=== PATIENT | male | born 1995 | race Caucasian/White ===

== ENCOUNTER 2024-09-27 18:34 | Emergency (ER) | payer OTHER, SELFPAY ==
[2024-09-27 18:36] VITALS: BP 151/84; PULSE 100; RESP 16; TEMP 37.4; O2SAT 98; BMI 34.1
--- NOTE | 2024-09-27 18:47 | EX.ED.DYSGE1 ---
HPI <JOAQUÍN Castellano - Last Filed: 09/27/24 19:54> History of Present Illness Chief Complaint: General Illness Narrative Narrative: 29-year-old male with no significant past medical history states 3 days ago he developed 24 hours of vomiting and diarrhea. After that resolved he developed a runny nose, congestion, sore throat, cough and lost his voice. He states he is achy all over. He has been taking ibuprofen. His girlfriend had similar GI symptoms. PFSH <JOAQUÍN Castellano - Last Filed: 09/27/24 19:54> [facility], [facility] Medical History (Updated 09/27/24 @ 23:[address] Gregor Carballo, DO) Cough Allergy/AdvReac Type Severity Reaction Status Date / Time Penicillins (PCN) Allergy CONVULSIONS Verified 09/27/24 18:36 Social History Smoking Status: Current every day smoker tobacco type: cigarettes ROS <JOAQUÍN Castellano Last Filed: 09/27/24 19:54> ROS ED ROS Narrative Constitutional: Positive for fever, chills, malaise. CVS: Negative for chest pain. Respiratory: Positive for cough. Negative for shortness of breath. GI: Negative for abdominal pain. Positive for vomiting, diarrhea. Neuro: Negative for headache. EXAM <JOAQUÍN Castellano Last Filed: 09/27/24 19:54> Physical Exam Narrative Exam Narrative: CONST: Patient appears ill but nontoxic. Resting in bed comfortably. EYES: Normal inspection. ENT: Normal posterior oropharynx with mucus drainage, midline uvula, no tonsillar exudate or swelling. Clear rhinorrhea in both naris, normal TMs bilaterally. NECK: Normal inspection. No meningismus. RESP: No respiratory distress, CTAB. CVS: Regular rate and rhythm, no murmur, no gallop. SKIN: Color normal, no rash, warm, dry, intact. EXTREMITIES: Normal appearance, no pedal edema. NEURO: Alert and answering questions appropriately. PSYCH: Normal affect. Const Vital Signs: 09/27/24 18:36 09/27/24 18:48 09/27/24 20:12 Temperature 99.4 F H 98.6 F Temperature Source Oral Pulse Rate 100 89 Respiratory Rate 16 18 Respiratory Effort Normal Non-Labored Blood Pressure 151/84 H 151/84 H Blood Pressure Mean 106 106 Pulse Ox 98 97 Oxygen Delivery Method Room Air <Dr. Gregor Carballo, - Last Filed: 09/27/24 23:53> Physical Exam Const Vital Signs: 09/27/24 18:36 09/27/24 18:48 09/27/24 20:12 Temperature 99.4 F H 98.6 F Temperature Source Oral Pulse Rate 100 89 Respiratory Rate 16 18 Respiratory Effort Normal Non-Labored Blood Pressure 151/84 H 151/84 H Blood Pressure Mean 106 106 Pulse Ox 98 97 Oxygen Delivery Method Room Air MDM <JOAQUÍN Castellano - Last Filed: 09/27/24 19:54> [facility] Narrative Medical decision making narrative: History gathered from: Patient, significant other Differential: Viral syndrome, pneumonia, no signs of otitis media, strep pharyngitis, or meningitis are present 29-year-old male presents with generalized illness. It started with GI symptoms and is now evolved into URI symptoms. He appears ill but nontoxic and is hemodynamically stable. Exam is benign with rhinorrhea and mucus drainage but no signs of acute bacterial etiologies. Viral swab is positive for influenza A and CXR shows right-sided infiltrate consistent with a viral pneumonia. He was treated with Toradol, Tylenol, and Decadron for sore throat. I discussed symptomatic management at home and she was discharged in stable condition. Radiography Diagnostic Testing: Clinical Impression(s) from Imaging Studies Chest X-Ray 09/27/24 18:53 IMPRESSION: Mild right lower lobe infiltrate. Electronically Signed: Daniel Marion MD at 19:16 EST Reading Location ID and State: [address] [place] [address] Tel , Service support , ED attending interpretation of 2 view chest x-ray shows normal heart size, right lower lobe infiltrate. <Dr. Gregor Carballo DO - Last Filed: 09/27/24 23:53> [facility] Narrative Medical decision making narrative: History gathered from: Patient, significant other Differential: Viral syndrome, pneumonia, no signs of otitis media, strep pharyngitis, or meningitis are present 29-year-old male presents with generalized illness. It started with GI symptoms and is now evolved into URI symptoms. He appears ill but nontoxic and is hemodynamically stable. Exam is benign with rhinorrhea and mucus drainage but no signs of acute bacterial etiologies. Viral swab is positive for influenza A and CXR shows right-sided infiltrate consistent with a viral pneumonia. He was treated with Toradol, Tylenol, and Decadron for sore throat. I discussed symptomatic management at home and she was discharged in stable condition. Attending note: I have personally performed a face to face assessment of the patient and have reviewed the TUNG note. I personally made/approved the management plan and take responsibility for the patient management. I performed a substantive portion of the visit including all aspects of the following. My de la fuente findings include: Department. History of vomiting diarrhea sore throat mild cough. No myalgias. No sick contacts. Exam fatigued male nontoxic no acute distress. Patient is ambulatory. Lungs clear heart regular. Patient treated with Tylenol and Toradol and dexamethasone was placed due to laryngitis symptoms with sore throat. COVID flu RSV positive for influenza. Two-view chest x-ray interpreted myself by radiology right lower lobe infiltrate early. There is a viral cause with influenza. No indication for antibiotics. He is over 48 hours from his symptoms therefore no indication for Tamiflu. Radiography Diagnostic Testing: Clinical Impression(s) from Imaging Studies Chest X-Ray 09/27/24 18:53 IMPRESSION: Mild right lower lobe infiltrate. Electronically Signed: Daniel Marion MD at 19:16 EST Reading Location ID and State: [address] [place] [address] Tel , Service support , Discharge Plan Triage Chief Complaint: General Illness ED Midlevel Provider: Alicia Avina ED Provider: Gregor Carballo Dx/Rx/DC Orders Clinical Impression: Influenza A, Viral pneumonia, Laryngitis Instructions: ED Influenza (Adult) Stand Alone Forms: ED Work / School Excuse [facility] Care Provider: [facility] Referrals: [facility],Out of [Non-Staff] - Activity Restrictions/Additional Instructions: You have influenza A. This is a viral illness treated with Tylenol and Motrin for fever or pain, fluids, and rest. You can take medication for symptoms as needed such as [id number] Mucinex or cough syrup. Print Language: Chinese Disposition Disposition: Home, Self Care Discharge Date/Time: 09/27/24 20:12
[2024-09-27] MEDS: Acetaminophen 500 MG Tablet 1000 MG PO (18:49)
[2024-09-27] MEDS: Ketorolac 15 MG/ML Vial IM (18:49)
--- NOTE | 2024-09-27 18:53 | RAD_ITS ---
STUDY: X-RAY CHEST REASON FOR EXAM: Male, 29 years old. cough TECHNIQUE: AP and lateral COMPARISON: None. FINDINGS: Mild right lower lobe infiltrate which may be consistent with pneumonia. There is no demonstrated pleural abnormality. Normal size heart. Normal mediastinum and ganga. Normal visualized pulmonary arteries. Normal visualized aortic arch and descending thoracic aorta. Normal visualized thoracic spine. Normal visualized ribs, clavicles, and shoulders. There is no demonstrated abnormality of the visualized soft tissue structures of the upper abdomen. RAD/Chest PA and Lateral IMPRESSION: Mild right lower lobe infiltrate. Electronically Signed: Daniel Marion MD at 19:16 EST ,
[2024-09-27] MEDS: dexAMETHasone 4 MG Tablet PO (19:18)
[2024-09-27 20:12] VITALS: BP 151/84; PULSE 89; RESP 18; TEMP 37; O2SAT 97
== END 2024-09-27 20:12 | disposition home or self-care (01) ==
PROVIDERS: Emergency Provider Emergency Medicine; Visit Provider Emergency Medicine
DX: J10.08 Influenza due to other identified influenza virus with other specified pneumonia (principal); F17.210 Nicotine dependence, cigarettes, uncomplicated; Z88.0 Allergy status to penicillin
CPT/HCPCS: 71046; 87631; 96372; 99283

== ENCOUNTER 2024-09-30 04:14 | Emergency (ER) | payer OTHER, SELFPAY ==
[2024-09-30 04:15] VITALS: BP 140/82; PULSE 79; RESP 18; TEMP 36.7; O2SAT 93
--- NOTE | 2024-09-30 04:18 | EX.ED.DYSGE1 ---
HPI History of Present Illness Chief Complaint: Cold Sx [facility] Medical History Cough Home Medications ?Medication ?Instructions ?Recorded ?Last Taken ?Type azithromycin 250 mg tablet 250 mg PO DAILY 4 days #4 tabs 09/30/24 Unknown Rx loratadine 10 mg tablet (Claritin) 10 mg PO DAILY 09/30/24 Unknown History Allergy/AdvReac Type Severity Reaction Status Date / Time Penicillins (PCN) Allergy CONVULSIONS Verified 09/30/24 04:14 Family History no significant family his Surgical History no surgical history Social History Smoking Status: Current every day smoker tobacco type: cigarettes EXAM Physical Exam Const Vital Signs: 09/30/24 04:15 09/30/24 04:18 Temperature 98.1 F Temperature Source Oral Pulse Rate 79 Respiratory Rate 18 Respiratory Effort Short of Breath Labored Respiratory Pattern Normal Blood Pressure 140/82 H Blood Pressure Mean 101 Pulse Ox 93 Oxygen Delivery Method Room Air [facility] MDM Narrative Medical decision making narrative: HISTORY OF PRESENT ILLNESS: 29-year-old male presents with concern for worsening shortness of breath in setting of recent diagnosis of influenza A, viral pneumonia. Notes worsening symptoms of shortness of breath. Notes cough. REVIEW OF SYSTEMS: Pertinent positives: Shortness of breath Pertinent negatives: Chest pain, leg swelling PHYSICAL EXAM: Nursing triage notes reviewed, Vital signs reviewed Constitutional: please see mdm HENT: MMM, tonsils midline, uvula midline, Eyes: Pupils equal round and reactive to light, Extraocular muscles intact Neck: No stridor, no JVD, full neck ROM Lungs: Clear to auscultation, No wheezing or rales. No increased work of breathing, no conversational dyspnea, no accessory muscle use, no nasal flaring. No respiratory distress noted Heart: Regular rate and rhythm, No murmurs, No rubs and No gallops, 2+ distal pulses (radial, femoral, posterior tibial) in all extremities Abdomen: Soft, there is no tenderness, rigidity, rebound or guarding, no obvious peritoneal signs, no palpable pulsatile abdominal masses, no auscultated abdominal bruit : No CVAT Extremities: No edema Neuro: No new focal neurological deficits, cranial nerves II through XII intact, 5/5 strength in all present extremities. Intact sensation to light touch in all present extremities, 2+ reflexes bilateral patella tendons. Skin: No rash or lesions noted MEDICAL DECISION MAKING: Chief Complaint: Shortness of breath External records reviewed: Reviewed imaging studies: Reviewed chest x-ray from 3 days ago which showed a right lower lobe infiltrate Factors affecting care: Influenza A Social determinants of health: none History obtained from others: Significant other Consults: none [facility] Narrative: The patient was initially hemodynamically stable, afebrile and nontoxic-appearing. Lungs with coarse breath sounds throughout, no posterior oropharyngeal swelling, exudates or signs of bacterial pharyngitis. I considered the following differential diagnosis: Influenza A, bacterial pneumonia, hypoxia Patient was ambulated to assess for exertional hypoxia. Repeat chest x-ray was obtained to assess for worsening pneumonia. ALL IMAGES (IF OBTAINED) HAVE BEEN PERSONALLY REVIEWED AND INTERPRETED BY MYSELF. I have personally reviewed the patient's chest x-ray. Chest x-ray showed stable right lower lobe infiltrate. Will cover for possible secondary bacterial pneumonia with oral azithromycin. Encourage plenty of fluids, Tylenol ibuprofen. Give strict return precautions. The patient and/or family, caregivers express understanding. The patient and/or family, caregivers agrees with the plan. Shared decision making: I will have a discussion with the patient and or visitors regarding risk/benefits of further testing or admission. They will be made aware of of the risk/benefits inherent in this decision they will be given the opportunity to voice understanding. Total critical care time today provided was at least 0 minutes. This excludes separately billable procedures. Critical care time (if documented) is secondary to the patient having high probability of clinically significant/life threatening deterioration in the patient's condition which required my urgent intervention. Impression: 1. Shortness breath 2. Cough 3. Influenza A Dispo: Discharge home This note was generated with [employer] dictation software. It may contain incorrect words, spelling, and punctuation that were not noted in review of the chart prior to signing. Discharge Plan Triage Chief Complaint: Cold Sx ED Provider: Russ Jay Dx/Rx/DC Orders Instructions: ED Influenza (Adult) Prescriptions: New azithromycin 250 mg tablet 250 mg PO DAILY 4 Days Qty: 4 0RF Rx Instructions: start on day 2 of therapy No Action loratadine [Claritin] 10 mg tablet 10 mg PO DAILY [place] [facility] Provider[place] [facility] Referrals[place] [Primary Care Provider] - Activity Restrictions/Additional Instructions: Thank you for trusting us with your care today! Your images were reassuring. Shows stable appearance of right lower lobe abnormality that we call pneumonia. I added azithromycin (antibiotic) to cover for any secondary bacterial infection. Please take Tylenol (2 pills, 650 mg), ibuprofen (2 pills, 400 mg) every 6 hours as needed for pain and fever control. Please drink plenty of fluids. I recommend Body Armor, Pedialyte. Please return to the emergency department if your symptoms change or worsen. Please follow with your primary care physician for further outpatient evaluation and management. Print Language: Bahraini Disposition Disposition: Home, Self Care
--- NOTE | 2024-09-30 04:50 | RAD_ITS ---
INDICATION: cough, pnA EXAMINATION/TECHNIQUE: X-RAY - XR Chest 2 Views COMPARISON: Prior study dated: 09/27/2024 FINDINGS: LINES/DEVICES: None. LUNGS: No consolidation, edema or effusion. No pneumothorax. MEDIASTINUM AND CARDIOVASCULAR STRUCTURES: Cardiac silhouette not enlarged. Central airways and mediastinal contour are unremarkable. BONES AND SOFT TISSUES: Unremarkable. RAD/Chest PA and Lateral IMPRESSION: No radiographic evidence of acute cardiopulmonary disease. Electronically Signed: Kumar Chou MD at 8:15 EST ,
[2024-09-30 05:00] VITALS: O2SAT 96
[2024-09-30] MEDS: Ketorolac 15 MG/ML Vial IM (05:05)
[2024-09-30] MEDS: Azithromycin 250 MG Tablet 500 MG PO (05:49)
[2024-09-30 05:50] VITALS: BP 145/81; PULSE 74; RESP 16; TEMP 36.7; O2SAT 97
== END 2024-09-30 05:59 | disposition home or self-care (01) ==
PROVIDERS: Emergency Provider Emergency Medicine; Visit Provider Emergency Medicine
DX: J10.1 Influenza due to other identified influenza virus with other respiratory manifestations (principal); R05.9 Cough, unspecified; R06.02 Shortness of breath; R91.8 Other nonspecific abnormal finding of lung field; F17.210 Nicotine dependence, cigarettes, uncomplicated; Z88.0 Allergy status to penicillin
CPT/HCPCS: 71046; 96372; 99282